=== PATIENT | male | born 1965 | race African-American/Black ===

== ENCOUNTER 2025-01-20 04:26 | Emergency (ER) | payer OTHER ==
[~2025-01-20] VITALS: Ht 190.5 cm; Wt 116.0 kg
[~2025-01-20 04:26] MED LIST: AMLO5TAB88 PO; AMOX-424 MT; DOXY100C5 MT; LOSA100T33 MT
[2025-01-20 04:32] VITALS: O2SAT 96
[2025-01-20] MEDS ORDERED: DICYCLOMINE 10 MG/5 ML ORAL SYR PO STA (05:33)
[2025-01-20 05:57] LABS: BASOPHILS % 0.5 % (0.0-2.0); EOSINOPHILS % 0.7 % (0.0-5.0); HEMATOCRIT. 46.5 % (42.0-52.0); HEMOGLOBIN. 15.6 g/dL (14.0-18.0); MEAN CORPUSCULAR HEMOGLOBIN 30.5 pg (28.0-32.0); MEAN CORPUSCULAR HGB CONC 33.4 g/dL (31.0-37.0); MEAN CORPUSCULAR VOLUME 91.3 fL (80.0-94.0); MEAN PLATELET VOLUME 8.3 fl (7.4-10.4); MONOCYTES % 6.6 % (2.0-8.0); NEUTROPHILS % 81.2 % (40.0-76.0); PLATELET 341 x1000/uL (130-400); RED CELL DISTRIBUTION WIDTH 14.1 % (11.6-14.6); WHITE BLOOD COUNT 9.4 x1000/uL (4.5-11.0)
[2025-01-20 06:05] LABS: CHLORIDE 104 mEq/L (98-107); SODIUM 140 mEq/L (136-145)
[2025-01-20 06:06] LABS: CALCIUM 9.4 mg/dL (8.7-10.4); CARBON DIOXIDE 25 mEq/L (21-32)
[2025-01-20 06:10] LABS: INR 0.9; PROTHROMBIN TIME 10.2 sec (9.6-11.0)
[2025-01-20 06:11] LABS: GLUCOSE 124 mg/dL (70-105); UREA NITROGEN BLOOD 15 mg/dL (9-23)
[2025-01-20 06:13] LABS: ALANINE AMINOTRANSFERASE 22 IU/L (10-49); ALBUMIN 4.9 g/dL (3.2-4.8); ASPARTATE AMINOTRANSFERASE 21 IU/L (<34); BILIRUBIN DIRECT 0.1 mg/dL (<=3.0)
[2025-01-20 06:14] LABS: BILIRUBIN TOTAL 0.5 mg/dL (0.1-1.0); PROTEIN TOTAL 8.1 g/dL (6.0-8.3)
[2025-01-20] MEDS: MAGNESIUM/ALUMINUM HYDROXIDE/SIMETHICONE 30ML UDC PO STA (06:30)
[2025-01-20] MEDS: ONDANSETRON 4MG ODT PO STA (06:30)
[2025-01-20] MEDS: VISCOUS LIDOCAINE 2% 15 ML UDC PO STA (06:30)
[2025-01-20] MEDS: DICYCLOMINE HCL 10MG CAPSULE PO SCH (06:30)
[2025-01-20] MEDS ORDERED: ONDA4TAB50 PO (06:44)
[2025-01-20] MEDS ORDERED: TOPUD PO (06:44)
[2025-01-20] MEDS: AMLODIPINE 5MG TABLET PO ONE (06:59)
[2025-01-20 07:13] VITALS: BP 171/95; PULSE 74; RESP 17; TEMP 36.7; O2SAT 98
== END 2025-01-20 07:15 | disposition home or self-care (01) ==
LOC: ER 04:26
DX: A05.9 Bacterial foodborne intoxication, unspecified (principal); I10 Essential (primary) hypertension; F10.90 Alcohol use, unspecified, uncomplicated; F12.90 Cannabis use, unspecified, uncomplicated; Z79.899 Other long term (current) drug therapy; Y90.9 Presence of alcohol in blood, level not specified
CPT/HCPCS: 99284; 80076; 80048; 83690; 85025; 85610; 36415; Q0162

== ENCOUNTER 2025-07-11 20:13 | Emergency (ER) | payer OTHER ==
[~2025-07-11] VITALS: Ht 190.5 cm; Wt 121.0 kg
[~2025-07-11 20:13] MED LIST changes: +ONDA4TAB50 PO; +TOPUD PO
[2025-07-11 20:26] VITALS: O2SAT 98
[2025-07-11 21:38] LABS: BASOPHILS % 0.5 % (0.0-2.0); EOSINOPHILS % 0.3 % (0.0-5.0); HEMATOCRIT. 46.1 % (42.0-52.0); HEMOGLOBIN. 15.6 g/dL (14.0-18.0); LYMPHOCYTES % 12.1 % (20.0-50.0); MEAN PLATELET VOLUME 8.6 fl (7.4-10.4); MONOCYTES % 7.9 % (2.0-8.0); NEUTROPHILS % 79.2 % (40.0-76.0); PLATELET 298 x1000/uL (130-400); RED BLOOD CELL COUNT 5.00 mill/uL (4.7-6.1); RED CELL DISTRIBUTION WIDTH 14.5 % (11.6-14.6)
[2025-07-11 21:54] LABS: CREATININE 0.9 mg/dL (0.6-1.3); UREA NITROGEN BLOOD 9 mg/dL (9-23)
[2025-07-11 21:56] LABS: ASPARTATE AMINOTRANSFERASE 18 IU/L (<34); BILIRUBIN DIRECT 0.1 mg/dL (<=3.0); BILIRUBIN TOTAL 0.5 mg/dL (0.1-1.0); PROTEIN TOTAL 7.4 g/dL (6.0-8.3)
[2025-07-11] MEDS: ONDANSETRON 4MG ODT PO ONE (22:08)
[2025-07-11] MEDS: ACETAMINOPHEN 325MG TABLET PO ONE (22:08)
[2025-07-11] MEDS ORDERED: ONDA-239 PO (23:44)
[2025-07-11 23:53] VITALS: BP 158/98; PULSE 98; RESP 16; TEMP 37.3; O2SAT 98
== END 2025-07-11 23:54 | disposition home or self-care (01) ==
LOC: ER 20:13
DX: K52.9 Noninfective gastroenteritis and colitis, unspecified (principal); I10 Essential (primary) hypertension; F12.90 Cannabis use, unspecified, uncomplicated; Z79.899 Other long term (current) drug therapy
CPT/HCPCS: 99284; 74176; 80076; 80048; 85025; 36415; Q0162